=== PATIENT | female | born 1950 | race Caucasian/White ===

== ENCOUNTER → 2016-10-16 | Outpatient (CLI) | payer MEDICAID ==
[~2016-10-16] MED LIST: IOPAMIDOL (ISOVUE-300) 100 ML BTL IV ONE
== END ==
LOC: CIMAGING 10:29
PROVIDERS: ATTEND Family Medicine
DX: R10.9 Unspecified abdominal pain (principal); K59.00 Constipation, unspecified
CPT/HCPCS: 74177-PO; Q9967

== ENCOUNTER → 2017-03-06 | Outpatient (CLI) | payer OTHER | LOC: CIMAGING 10:16 | PROVIDERS: ATTEND Family Medicine | DX: R05 Cough (principal); J32.9 Chronic sinusitis, unspecified | CPT/HCPCS: 71020-PO ==

== ENCOUNTER 2018-01-16 06:45 | Day surgery (SDC) | payer OTHER ==
[2018-01-16] MEDS ORDERED: LR 1,000 ML IV ONE (07:13)
--- NOTE | 2018-01-16 07:19 | PDHPUP ---
History & Physical Update H&P update statement: This history and physical update is based on an assessment of the patient which was completed after admission or registration (within 24 hours), but prior to the surgery/procedure. H&P update: H&P reviewed & patient examined H&P changes: none
[2018-01-16] MEDS ORDERED: ceFAZolin 2 GM/DEXTROSE 100 ML IV ONE (07:49)
[2018-01-16] MEDS ORDERED: BUPIVACAINE 0.25% 30 ML SDV ONE ×2 (07:50→07:54)
[2018-01-16] MEDS ORDERED: BACITRACIN 50,000 UNITS/10 ML SYR IRR ONE (07:50)
[2018-01-16] MEDS ORDERED: BUPIVACAINE/EPI 0.5% 30 ML SDV ONE (07:50)
[2018-01-16] MEDS ORDERED: EPINEPHrine 1 MG/ML INJ ONE (07:52)
[2018-01-16] MEDS ORDERED: MIDAZOLAM 2 MG/2 ML VIAL ONE (08:07)
[2018-01-16] MEDS ORDERED: MIDAZOLAM 2 MG/2 ML VIAL IVP ONE (08:08)
--- NOTE | 2018-01-16 08:09 | PDANEPAE ---
ANE History of Present Illness here for left foot plantar plate repair ANE Past Medical History - Cardiovascular History Hx Hypertension: No Hx Arrhythmias: No Hx Chest Pain: No Hx Coronary Artery / Peripheral Vascular Disease: No Hx CHF / Valvular Disease: No Hx Palpitations: No Cardiovascular History Comment: OCCAS IRREG HB - NO MEDS - Pulmonary History Hx COPD: No Hx Asthma/Reactive Airway Disease: No Hx Recent Upper Respiratory Infection: No Hx Oxygen in Use at Home: No Hx Sleep Apnea: No Sleep Apnea Screening Result - Last Documented: Negative Pulmonary History Comment: PE EUN LUNGS POST OP KNEE SURG YRS AGO - Neurologic History Hx Cerebrovascular Accident: No Hx Seizures: No Hx Dementia: No - Endocrine History Hx Diabetes: No - Renal History Hx Renal Disorders: No - Liver History Hx Hepatic Disorders: No - Neurological & Psychiatric Hx Hx Neurological and Psychiatric Disorders: Yes Neurological / Psychiatric History Comment: ANXIETY - Cancer History Hx Cancer: No - Congenital Disorder History Hx Congenital Disorders: No - GI History Hx Gastrointestinal Disorders: No - Other Health History Other Health History: ECZEMA OCCAS - Chronic Pain History Chronic Pain: No - Surgical History Prior Surgeries: MASS REMOVED R BREAST. L KNEE SCOPE - MENISCUS ANE Review of Systems Review of Systems: - Exercise capacity METS (RN): 4 METS ANE Patient History - Allergies Allergies/Adverse Reactions: hydrocodone [Hydrocodone] Allergy (Intermediate, Verified 01/16/18 07:15) Vomiting codeine [Codeine] Allergy (Verified 01/16/18 07:15) Vomiting - Home Medications Home medications: home medication list seen and reviewed Home Medications: CHOLECALCIFEROL [VITAMIN D] 50,000 dose 10/30/11 [Last Taken 01/12/18] Pansey-3 Fatty Acids [Fish Oil 1000 mg (*)] 1,000 10/30/11 [Last Taken 01/12/18] Advil 01/13/18 [Last Taken 01/09/18] Escitalopram Oxalate 01/13/18 [Last Taken 01/15/18] Probiotic 01/13/18 [Last Taken 01/12/18] - NPO status NPO Status: no food or drink >8 hours NPO Since - Liquids (Date): 01/15/18 NPO Since - Liquids (Time): 23:50 NPO Since - Solids (Date): 01/15/18 NPO Since - Solids (Time): 23:50 - Smoking Hx Smoking Status: Never smoked - Family Anes Hx Family Hx Anesthesia Complications: NEG ANE Labs/Vital Signs - Vital Signs Vital Signs: reviewed preoperatively; see RN documention for details Blood Pressure: 151/86 Heart Rate: 75 Respiratory Rate: 16 O2 Sat (%): 96 Height: 172.72 cm Weight: 90.718 kg ANE Physical Exam - Airway Neck exam: FROM Mallampati Score: Class 1 - Pulmonary Pulmonary: no respiratory distress - Cardiovascular Cardiovascular: regular rate and rhythym - ASA Status ASA Status: II ANE Anesthesia Plan Anesthesia Plan: GA with mask
[2018-01-16] MEDS ORDERED: fentaNYL 100 MCG/2 ML INJ ONE ×2 (08:12→09:27)
[2018-01-16] MEDS ORDERED: PROPOFOL/EMULSION 500 MG/50 ML BOTTLE IV ONE ×3 (08:13→09:32)
[2018-01-16] MEDS ORDERED: LIDOCAINE 2% 5 ML SDV ONE (08:28)
[2018-01-16] MEDS ORDERED: fentaNYL 100 MCG/2 ML INJ IVP PRN (08:44)
[2018-01-16] MEDS ORDERED: HYDROCODONE/APAP 5/325 TAB PO PRN (08:44)
[2018-01-16] MEDS ORDERED: NALOXONE HCL 0.4 MG/ML INJ IVP PRN (08:44)
[2018-01-16] MEDS ORDERED: PROMETHAZINE HCL 25 MG/ML INJ IVP PRN (08:44)
[2018-01-16] MEDS ORDERED: HYDROmorphONE/DILAUDID 1 MG/ML INJ IVP PRN (08:44)
[2018-01-16] MEDS ORDERED: DEXAMETHASONE 4 MG/ML VIAL IVP PRN (08:44)
[2018-01-16] MEDS ORDERED: ACETAMINOPHEN 500 MG TAB PO PRN (08:44)
[2018-01-16] MEDS ORDERED: ONDANSETRON 4 MG/2 ML VIAL IVP PRN (08:44)
[2018-01-16] MEDS ORDERED: oxyCODONE IR 5 MG TAB PO PRN (08:44)
--- NOTE | 2018-01-16 10:06 | POSTOPPROG ---
Post Op Note Date of Operation: 01/16/18 Surgeon: Chano Cisneros Reel Hooker: none Anesthesiologist: maggi Anesthesia: IV Sedation Pre-op Diagnosis: plantar plate tear with hammertoe left 2nd Post-op Diagnosis: same Indication: plantar pain Procedure: plantar plate repair, 2nd met osteotomy, hammertoe repair Findings: torn plantar plate Inf/Abcess present in the surg proc area at time of surgery?: No Depth: Deep Incisional (Fascial) EBL: Minimal Total fluids administered: 20cc .25% 9/1 ratio marcaine plain and with epi Complications: none Drains: Other (none)
[2018-01-16] MEDS ORDERED: ACETAMINOPHEN 500 MG TAB ONE (11:03)
[2018-01-16] MEDS ORDERED: ONDANSETRON 4 MG/2 ML VIAL ONE (11:39)
--- NOTE | 2018-01-16 11:51 | POSTANESTH ---
Post Anesthetic Evaluation Cardiovascular Status: Normal, Stable Respiratory Status: Normal, Stable Level of Consciousness/Mental Status: Can Participate in Eval Pain Control: Adequate, Prn Tx Ordered Nausea/Vomiting Control: Adequate, Prn Tx Ordered Complications Possibly Related to Anesthesia: None Noted
[2018-01-16 13:56] VITALS: BP 142/70
--- NOTE | 2018-01-17 21:59 | GOP ---
[f rep st] OPERATIVE REPORT DATE OF OPERATION: 01/16/2018 SURGEON: Chano Cisneros DPM SUPERVISOR DIALS: None. ANESTHESIA: Local with MAC by Dr. Hay. PREOPERATIVE DIAGNOSIS: 1. Left 2nd metatarsophalangeal joint plantar plate tear. 2. Metatarsalgia, left 2nd. 3. Hammertoe, left 2nd. POSTOPERATIVE DIAGNOSIS: 1. Left 2nd metatarsophalangeal joint plantar plate tear. 2. Metatarsalgia, left 2nd. 3. Hammertoe, left 2nd. PROCEDURE PERFORMED: 1. Second metatarsal osteotomy, left. 2. Plantar plate repair, left 2nd metatarsophalangeal joint. 3. Correction of left 2nd hammertoe by proximal interphalangeal joint fusion. FINDINGS: ESTIMATED BLOOD LOSS: Minimal. DESCRIPTION OF PROCEDURE: The patient presented to [facility], was cleared for the int ended procedure. The patient was taken to the operating room and placed on the table in supine posit ion. IV sedation was started per the anesthesia department. Foot was anesthetized in infiltrative n erve block fashion. Foot was prepped, scrubbed and draped in usual sterile fashion. Following exsan guination by elevation of Esmarch bandage, pneumatic ankle tourniquet was inflated to 225 mmHg. At t his time, attention was directed to the dorsal aspect of the left foot where a lazy-S incision was ma de starting proximal over the 2nd intermetatarsal space, curving at the level of the metatarsophalang eal joint and continuing distally over the level of the proximal interphalangeal joint. This incisio n was then carried deep utilizing sharp and blunt dissection, making sure that all neurovascular stru ctures were identified and retracted. At this time, all superficial bleeders were cauterized. The i ncision was carried down deep to the level of the metatarsophalangeal joint and the proximal interpha langeal joint. At this time, a linear capsulotomy was made over the metatarsophalangeal joint and ti ssue was dissected free medially and laterally to allow for adequate exposure to the head of the meta tarsal. Utilizing a McGlamry elevator, the plantar plate was freed up at this time. An osteotomy of the 2nd metatarsal was then performed. The Jag osteotomy was performed running from dorsal distal to plantar proximal. The head was transposed proximally as far as possible and temporarily fixated w ith K-wire fixation. Another K-wire was placed into the base of the proximal phalanx and the distrac tor was placed over this site. Visualization at this time showed rupture of the plantar plate from t he base of the proximal phalanx. It was decided that repair would be necessary. The Arthrex mini sc orpion was then utilized to tag both the medial and distal lateral aspects of the plantar plate. The base of the proximal phalanx then had 2 drill holes running in an X fashion placed through the site. The suture passers were placed through the drill holes and the suture was then pulled up to the jourdan nicholas aspect of the metatarsal. At this time, the base of the proximal phalanx was roughed up with a b one rasp down to healthy bleeding bone to allow for better healing potential for the plantar plate. Upon completion of this, the entire area was flushed with copious amounts of sterile saline. The dis tractor was removed as well as the K-wire fixation from both sites. At this time, attention was redi rected to the proximal interphalangeal joint where a transverse incision was made through the extenso r apparatus. The extensor apparatus was dissected free proximally before the medial and lateral jaya ateral ligaments were released. This allowed for adequate visualization of the head of the proximal phalanx. At this time, utilizing a sagittal saw, this was resected and removed. The cartilaginous s urface in the base of the proximal phalanx was then removed with a high-speed rotary bur. The area w as again flushed with copious amounts of sterile saline. At this point, both sides of the fusion site were drilled appropriately with the [employer] fixation system. The area was measured as a small implant. It was screwed into the distal phalanx before be ing placed into the proximal phalanx and compressed. C-arm fluoroscopy showed excellent correction o f the hammertoe at this time. The area was again flushed with copious amounts of sterile saline befo re the extensor apparatus was reapproximated with 3-0 Vicryl. Attention was then redirected to the plantar plate and metatarsal osteotomy. Utilizing C-arm fluoros copy, the metatarsal osteotomy was placed into the appropriate alignment, which allowed for some shor tening, but not as short as the 3rd metatarsal. The area was again held temporarily with K-wire fixa tion before Arthrex 2.0 snap-off screws were placed across the site. An 11 and 12 mm screw were plac ed and good compression was obtained upon removal of the K-wire fixation. Following this, the planta r plate was sutured into place on the dorsal aspect of the proximal phalanx and again C-arm fluorosco py showed an excellent alignment to the metatarsophalangeal joint. The entire area was again flushed with copious amounts of sterile saline before capsule of the metatarsophalangeal joint was closed wi th 2-0 and 3-0 Vicryl, followed by subcutaneous closure along the entire incision with 5-0 Vicryl and skin closure with 5-0 nylon. The area was dressed with Betadine-soaked Adaptics, 4x4s, Kendra, and C oban. The patient was taken to recovery room, vital signs stable, vascular supply intact digits 1 th rough 5 bilaterally after the pneumatic ankle tourniquet had been released for a total tourniquet isaac e of 78 minutes. SURGEON: Chano Cisneros DPM. PATHOLOGY: None. HEMOSTASIS: PAT at 225 mmHg by 78 minutes. MATERIALS: Arthrex 2.0 snap-off screws by 11 and 13 mm, hammer tack fixation system small. INJECTABLES: 20 cc 9:1 ratio, 0.25% Marcaine plain, 0.25% Marcaine with epi preoperatively, 4 cc 2% Xylocaine plain postoperatively. COMPLICATIONS: None. /[id number]/MODL
== END 2018-01-16 13:56 | disposition home or self-care (01) ==
LOC: FSGY 06:45
PROVIDERS: ATTEND Podiatrist Primary Podiatric Medicine
PROC: 0SGQ0ZZ (ICD-10-PCS; principal; 2018-01-16 08:15)
PROC: 0JQR0ZZ Repair Left Foot Subcutaneous Tissue and Fascia, Open Approach (ICD-10-PCS; principal; 2018-01-16 08:15)
PROC: 0QSP04Z Reposition Left Metatarsal with Internal Fixation Device, Open Approach (ICD-10-PCS; principal; 2018-01-16 08:15)
DX: M20.42 Other hammer toe(s) (acquired), left foot (principal); S93.525A Sprain of metatarsophalangeal joint of left lesser toe(s), initial encounter; X58.XXXA Exposure to other specified factors, initial encounter; M77.42 Metatarsalgia, left foot
CPT/HCPCS: C1713; J0171; J0690; J2250; J2405; J2704; J3010

== ENCOUNTER → 2018-11-21 | Outpatient (CLI) | payer OTHER | LOC: BRMIMAGING 14:30 | PROVIDERS: ATTEND Family Medicine | DX: Z13.820 Encounter for screening for osteoporosis (principal); H25.813 Combined forms of age-related cataract, bilateral; Z78.0 Asymptomatic menopausal state; M25.551 Pain in right hip; M81.0 Age-related osteoporosis without current pathological fracture ==

== ENCOUNTER → 2018-11-26 | Outpatient (CLI) | payer OTHER | LOC: CIMAGING 12:32 | PROVIDERS: ATTEND Family Medicine | DX: M16.0 Bilateral primary osteoarthritis of hip (principal); M47.898 Other spondylosis, sacral and sacrococcygeal region | CPT/HCPCS: 73502-PO ==

== ENCOUNTER → 2018-11-28 | Outpatient (CLI) | payer OTHER | LOC: CIMAGING 14:48 | PROVIDERS: ATTEND Family Medicine | DX: Z12.31 Encounter for screening mammogram for malignant neoplasm of breast (principal) ==

== ENCOUNTER → 2018-12-05 | Outpatient (CLI) | payer OTHER | LOC: BRMIMAGING 12:40 | PROVIDERS: ATTEND Family Medicine | DX: R92.8 Other abnormal and inconclusive findings on diagnostic imaging of breast (principal) | CPT/HCPCS: 76641-PO ==